=== PATIENT | male | born 1970 | race African-American/Black ===

== ENCOUNTER 2018-03-31 14:56 | Inpatient (IN) | payer OTHER ==
[2018-03-31 16:58] VITALS: BMI 25.7
--- NOTE | 2018-03-31 19:12 | HP ---
CIWA Score - CIWA Score Nausea/Vomitin Muscle Tremors: 3 Anxiety: 4-Mod. Anxious/Guarded Agitation: 2 Paroxysmal Sweats: No Perspiration Orientation: 0-Oriented Tacttile Disturbances: 2-Mild Itch/Numbness/Burn Auditory Disturbances: 0-None Visual Disturbances: 2-Mild Sensitivity Headache: 0-None Present CIWA-Ar Total Score: 16 Admission ROS BHS - HPI Chief Complaint: "I'm here because I want to go back to work and go on with my life. My drinking is hindering me." Patient is here to Detox from Alcohol. Allergies/Adverse Reactions: Allergies Allergy/AdvReac Type Severity Reaction Status Date / Time beet Allergy Severe Swelling Verified 03/31/18 18:41 liver extract Allergy Severe Swelling Verified 03/31/18 18:57 History of Present Illness: Patient is a 47 YO male here to Detox from Alcohol. This is patient's first detox admission at [facility]. Patient has had several Detox admissions at other locations in the past; Most Recent: [facility] ([place] in 01/2018. Most recent period of sobriety: approx. 1.5 years ([id number]). Exam Limitations: No Limitations - Ebola screening Have you traveled outside of the country in the last 21 days: No Have you had contact with anyone from an Ebola affected area: No Have you been sick,other than usual withdrawal symptoms: No Do you have a fever: No - Review of Systems Constitutional: Chills, Diaphoresis, Fever, Malaise, Night Sweats, Changes in sleep, Unintentional Wgt. Loss (Lost approx. 10 lbs. over last 3 months.) EENT: reports: No Symptoms Reported Respiratory: reports: No Symptoms reported Cardiac: reports: Other (Patient reports episodes of "Blackouts" when is drinking, in which he temporarily loses awareness of what he is doing. Last episode: approx. 2 days ago.) GI: reports: Nausea, Indigestion : reports: No Symptoms Reported Musculoskeletal: reports: Back Pain, Joint Pain (Primarily Left Hip (Chronic Condition).), Joint Stiffness (Primarily Left Hip (Chronic Condition).) Integumentary: reports: Other (Small healing cut near tip of Index Finger of Right Hand. Patient accidentlally cut himself with a piece of glass approx. 3 days ago.) Neuro: reports: Tremors Endocrine: reports: No Symptoms Reported Hematology: reports: No Symptoms Reported Psychiatric: reports: Judgement Intact, Mood/Affect Appropiate, Orientated x3, Anxious Other Systems: Reviewed and Negative Patient History - Patient Medical History Hx Anemia: No Hx Asthma: No Hx Chronic Obstructive Pulmonary Disease (COPD): No Hx Cancer: No Hx Cardiac Disorders: Yes (Heart Murmur.) Hx Congestive Heart Failure: No Hx Hypertension: No Hx Hypercholesterolemia: No Hx Pacemaker: No HX Cerebrovascular Accident: No Hx Seizures: No Hx Dementia: No Hx Diabetes: No Hx Gastrointestinal Disorders: No Hx Liver Disease: No Hx Genitourinary Disorders: No Hx Sexually Transmitted Disorders: No Hx Renal Disease (ESRD): No Hx Thyroid Disease: No Hx Human Immunodeficiency Virus (HIV): No (Last Tested: 01/2018: NEGATIVE.) Hx Hepatitis C: No (Last Tested: 01/2018: NEGATIVE.) Hx Depression: No Hx Suicide Attempt: No (PATIENT DENIES CURRENT SI / HI.) Hx Bipolar Disorder: No Hx Schizophrenia: No Other Medical History: DENIES. - Patient Surgical History Past Surgical History: No Hx Neurologic Surgery: No Hx Cataract Extraction: No Hx Cardiac Surgery: No Hx Lung Surgery: No Hx Breast Surgery: No Hx Breast Biopsy: No Hx Abdominal Surgery: No Hx Appendectomy: No Hx Cholecystectomy: No Hx Genitourinary Surgery: No Hx Section: No Hx Orthopedic Surgery: No Other Surgical History: DENIES. Anesthesia Reaction: No - PPD History Previous Implant?: Yes Documented Results: Positive w/o proof (Completed Full course of Antibiotic treatment in 1991 and again 2000.) Implanted On Prior [facility] Admission?: No PPD to be Administered?: No - Reproductive History Patient is a Female of Child Bearing Age (11 -55 yrs old): No (PATIENT IS MALE.) - Smoking Cessation Smoking history: Current every day smoker Aproximately how many cigarettes per day: 7 Cigars Per Day: 0 Hx Chewing Tobacco Use: No Initiated information on smoking cessation: Yes 'Breaking Loose' booklet given: 03/31/18 (GIVEN TO PATIENT.) - Substance & Tx. History Hx Alcohol Use: Yes Hx Substance Use: Yes Substance Use Type: Alcohol, Heroin, Marijuana Hx Substance Use Treatment: Yes (Previous admissions at other locations (Most Recent: [facility], 01/2018).) - Substances Abused Alcohol Route: Oral Frequency: Daily Amount used: LIQUOR- 5 PINTS, BEER- 1 SIX PACK Age of first use: 25 Date of Last Use: 03/31/18 Crack Route: Smoking Frequency: Daily Amount used: $100 WORTH Age of first use: 15 Date of Last Use: 03/31/18 Marijuana/Hashish Route: Smoking Frequency: Daily Amount used: $5 - $20 Age of first use: 11 Date of Last Use: 03/31/18 Family Disease History - Family Disease History Family Disease History: Heart Disease: Mother (.), Other: Grandparent ( Alcohol.), Father (Alcohol.) Admission Physical Exam S - Vital Signs Vital Signs: Vital Signs - 24 hr 03/31/18 16:56 Temperature 98.0 F Pulse Rate 66 Respiratory 18 Rate Blood Pressure 140/78 - Physical General Appearance: Yes: No Apparent Distress, Nourished, Appropriately Dressed , Tremorous, Anxious HEENTM: Yes: Hearing grossly Normal, Normocephalic, Normal Voice, MAURO, Pharynx Normal Respiratory: Yes: Chest Non-Tender, Lungs Clear, No Respiratory Distress, No Accessory Muscle Use Neck: Yes: No masses,lesions,Nodules, Supple, Trachea in good position Breast: Yes: Breast Exam Deferred Cardiology: Yes: Regular Rhythm, Regular Rate, S1, S2 Abdominal: Yes: Normal Bowel Sounds, Non Tender, Flat, Soft Genitourinary: Yes: Within Normal Limits Back: Yes: Decreased Range of Motion Musculoskeletal: Yes: Gait Steady, Back pain, Joint Stiffness Extremities: Yes: Normal Capillary Refill, Tremors Neurological: Yes: Fully Oriented, Alert, Normal Mood/Affect, Normal Response Integumentary: Yes: Normal Color, Dry, Warm, Other (Small Cut Near tip of Index Finger of Right Hand (patient reports that he accidentally cut himself with glass three days ago). Wounds appears to be healing well. No discharge, erythema , swelling, or signs of infection noted.) Lymphatic: Yes: Within Normal Limits - Diagnostic (1) Alcohol dependence with uncomplicated withdrawal Current Visit: Yes Status: Acute (2) Cocaine dependence, uncomplicated Current Visit: Yes Status: Chronic (3) Cannabis dependence, uncomplicated Current Visit: Yes Status: Chronic (4) Nicotine dependence Current Visit: Yes Status: Chronic Qualifiers: Nicotine product type: cigarettes Substance use status: uncomplicated Qualified Code(s): F17.210 - Nicotine dependence, cigarettes, uncomplicated Cleared for Admission [facility] - Detox or Rehab [facility] Level of Care: Medically Managed Detox Regimen/Protocol: Librium [facility] Breath Alcohol Content Breath Alcohol Content: 0 Urine Drug Screen - Results Drug Screen Negative: No Urine Drug Screen Results: THC-Marijuana, JEREMIAS-Cocaine
[2018-03-31] MEDS ORDERED: MENTHOL/PHENOL 1 EACH UD MM PRN (19:42)
[2018-03-31] MEDS ORDERED: LOPERAMIDE HCL 2 MG CAPSULE PO PRN (19:42)
[2018-03-31] MEDS ORDERED: guaiFENesin/D-METHORPHAN HB 10 ML UNIT-DOSE CUPS PO PRN (19:42)
[2018-03-31] MEDS ORDERED: chlordiazePOXIDE HCL 25 MG CAPSULE PO PRN (19:42)
[2018-03-31] MEDS ORDERED: MAGNESIUM HYDROX 2400MG/30ML ORAL SUSPENSION 30 ML CUP PO PRN (19:42)
[2018-03-31] MEDS ORDERED: MAG HYDROX/AL HYDROX/SIMETH 30 ML UNIT-DOSE CUP PO PRN (19:42)
[2018-03-31] MEDS ORDERED: IBUPROFEN 400 MG TABLET (FP) PO PRN (19:42)
[2018-03-31] MEDS ORDERED: ACETAMINOPHEN 325 MG TABLET (FP) PO PRN (19:42)
[2018-03-31] MEDS ORDERED: P-EPHED 60MG/TRIPROLIDI 2.5MG TABLET PO PRN (19:42)
[2018-03-31] MEDS ORDERED: MAGNESIUM CITRATE 300 ML BOTTLE PO PRN (19:42)
[2018-03-31] MEDS ORDERED: chlordiazePOXIDE HCL 25 MG CAPSULE PO ONE (20:15)
[2018-03-31] MEDS: BACITRACIN 0.9 GM PACKET TP SCH (22:15)
[2018-03-31] MEDS: THIAMINE HCL 100 MG TABLET (FP) PO SCH (22:16)
[2018-03-31] MEDS: chlordiazePOXIDE HCL 25 MG CAPSULE PO SCH (22:28)
[2018-04-01 01:32] LABS: URINE APPEARANCE CLEAR; URINE BILIRUBIN NEGATIVE (<2.0 mg/dL); URINE COLOR YELLOW; URINE GLUCOSE (UA) NEGATIVE (NEGATIVE); URINE KETONE NEGATIVE (NEGATIVE); URINE LEUK ESTERASE NEGATIVE (NEGATIVE); URINE NITRITE NEGATIVE (NEGATIVE); URINE PROTEIN NEGATIVE (NEGATIVE); URINE UROBILINOGEN NEGATIVE mg/dL (0.2-1.0)
[2018-04-01] MEDS: chlordiazePOXIDE HCL 25 MG CAPSULE PO SCH ×4 (05:50→22:27)
[2018-04-01] MEDS ORDERED: BACITRACIN 0.9 GM PACKET ONE (09:47)
[2018-04-01 10:31] LABS: HEMATOCRIT 43.5 % (35.4-49); HEMOGLOBIN 14.6 GM/dL (11.7-16.9); MCH 31.4 pg (25.7-33.7); MCHC 33.7 g/dl (32.0-35.9); MEAN CELL VOLUME 93.3 fl (80-96); MEAN PLT VOLUME 10.5 fl (7.5-11.1); PLATELET COUNT 148 K/MM3 (134-434); RBC 4.66 M/mm3 (4.00-5.60); RDW 13.8 % (11.9-15.9); WHITE BLOOD COUNT 3.9 K/mm3 (4.0-10.0)
[2018-04-01 10:33] LABS: CHLORIDE 111 mmol/L (98-107); POTASSIUM 4.4 mmol/L (3.5-5.1); SODIUM 144 mmol/L (136-145)
--- NOTE | 2018-04-01 10:54 | PN ---
S CIWA - CIWA Score Nausea/Vomitin Muscle Tremors: 2 Anxiety: 2 Agitation: 2 Paroxysmal Sweats: 2 Orientation: 0-Oriented Tacttile Disturbances: 2-Mild Itch/Numbness/Burn Auditory Disturbances: 1-Very Mild Visual Disturbances: 0-None Headache: 2-Mild CIWA-Ar Total Score: 15 S Progress Note (SOAP) Subjective: Shakes and diarrhea Objective: 04/01/18 10:53 Vital Signs - 8 hr 04/01/18 04/01/18 04/01/18 03:30 06:00 06:30 Temperature 98.2 F Pulse Rate 59 L Respiratory 18 18 18 Rate Blood Pressure 149/78 04/01/18 09:15 Temperature 98.1 F Pulse Rate 55 L Respiratory 18 Rate Blood Pressure 139/76 Laboratory Last Values WBC 3.9 K/mm3 (4.0-10.0) L 04/01/18 08:00 RBC 4.66 M/mm3 (4.00-5.60) 04/01/18 08:00 Hgb 14.6 GM/dL (11.7-16.9) 04/01/18 08:00 Hct 43.5 % (35.4-49) 04/01/18 08:00 MCV 93.3 fl (80-96) 04/01/18 08:00 MCH 31.4 pg (25.7-33.7) 04/01/18 08:00 MCHC 33.7 g/dl (32.0-35.9) 04/01/18 08:00 RDW 13.8 % (11.9-15.9) 04/01/18 08:00 Plt Count 148 K/MM3 (134-434) 04/01/18 08:00 MPV 10.5 fl (7.5-11.1) 04/01/18 08:00 Sodium 144 mmol/L (136-145) 04/01/18 08:00 Potassium 4.4 mmol/L (3.5-5.1) 04/01/18 08:00 Chloride 111 mmol/L (98-107) H 04/01/18 08:00 Urine Color Yellow 04/01/18 00:07 Urine Appearance Clear 04/01/18 00:07 Urine pH 5.0 (5.0-8.0) 04/01/18 00:07 Ur Specific [place] 1.014 (1.001-1.035) 04/01/18 00:07 Urine Protein Negative (NEGATIVE) 04/01/18 00:07 Urine Glucose (UA) Negative (NEGATIVE) 04/01/18 00:07 Urine Ketones Negative (NEGATIVE) 04/01/18 00:07 Urine Blood Negative (NEGATIVE) 04/01/18 00:07 Urine Nitrite Negative (NEGATIVE) 04/01/18 00:07 Urine Bilirubin Negative (<2.0 mg/dL) 04/01/18 00:07 Urine Urobilinogen Negative mg/dL (0.2-1.0) 04/01/18 00:07 Ur Leukocyte Esterase Negative (NEGATIVE) 04/01/18 00:07 Labs noted Assessment: 04/01/18 10:54 Withdrawal sx Plan: Continue detox
[2018-04-01] MEDS: PRENATAL VITAMINS W/ FOLIC ACID TABLET (FP) PO SCH (10:59)
[2018-04-01] MEDS: BACITRACIN 0.9 GM PACKET TP SCH ×2 (10:59→22:27)
[2018-04-01 11:11] LABS: ALBUMIN 3.1 g/dl (3.4-5.0); ALK PHOS 66 U/L (45-117); ANION GAP 9 MMOL/L (8-16); BILIRUBIN,TOTAL 0.5 mg/dL (0.2-1.0); BLOOD UREA NITROGEN 16 mg/dL (7-18); CALCIUM 8.9 mg/dL (8.5-10.1); CO2 24 mmol/L (21-32); GLUCOSE,RANDOM 86 mg/dL (74-106); SGOT/AST 36 U/L (15-37); SGPT/ALT 39 U/L (12-78); TOT PROT 6.6 g/dl (6.4-8.2)
--- NOTE | 2018-04-01 16:39 | CONSULT ---
[facility] Psychiatric Consult - Data Date of interview: 04/01/18 Admission source: [facility] Identifying data: First admission to [facility] for this 47 y/o AA male seeking detox treatment on for alcohol,cocaine,cannabis and nicotine dependence.Patient is single,a father of two,domiciled,unemployed and guarded on the issue of source of income. Substance Abuse History: Confirmed by patient in this interview . Details in current [facility] repoort : Smoking history: Current every day smoker. Aproximately how many cigarettes per day: 7. Cigars Per Day: 0. Hx Chewing Tobacco Use: No. Initiated information on smoking cessation: Yes. 'Breaking Loose' booklet given: 03/31/18 (GIVEN TO PATIENT.). - Substance & Tx. History. Hx Alcohol Use : Yes. Hx Substance Use: Yes. Substance Use Type: Alcohol, Heroin, Marijuana. Hx Substance Use Treatment: Yes (Previous admissions at other locations (Most Recent: [facility], 01/2018).). - Substances Abused. Alcohol. Route: Oral. Frequency: Daily. Amount used: LIQUOR- 5 PINTS, BEER- 1 SIX PACK. Age of first use: 25. Date of Last Use: 03/31/18. Crack. Route: Smoking. Frequency: Daily. Amount used: $100 WORTH. Age of first use: 15. Date of Last Use: 03/31/18. Marijuana/Hashish. Route: Smoking. Frequency: Daily. Amount used: $5 - $20. Age of first use: 11. Date of Last Use: 03/31/18 Medical History: Patient endorses good general health.Noted history of heart murmur. Psychiatric History: Patient denies history of psychiatric hospitalizations or suicide attempts.Mr Alex indicates that, years ago, he was seeing a psychologist for anger management.Not on psychotropic medications. Physical/Sexual Abuse/Trauma History: Patient denies. Additional Comment: Urine Drug Screen Results: THC-Marijuana, JEREMIAS-Cocaine.Noted. Mental Status Exam - Mental Status Exam Alert and Oriented to: Time, Place, Person Cognitive Function: Good Patient Appearance: Unkempt, Disheveled Mood: Withdrawn, Irritable Affect: Mood Congruent Patient Behavior: Fatigued, Cooperative Speech Pattern: Clear, Appropriate Voice Loudness: Normal Thought Process: Intact, Goal Oriented Thought Disorder: Not Present Hallucinations: Denies Suicidal Ideation: Denies Homicidal Ideation: Denies Insight/Judgement: Poor Sleep: Fair Appetite: Good Muscle strength/Tone: Normal Gait/Station: Normal Psychiatric Findings - Problem List ([place] 1, 2,3) (1) Alcohol dependence with uncomplicated withdrawal Current Visit: Yes Status: Acute (2) Cocaine dependence, uncomplicated Current Visit: Yes Status: Chronic (3) Cannabis dependence, uncomplicated Current Visit: Yes Status: Acute (4) Nicotine dependence Current Visit: Yes Status: Chronic Qualifiers: Nicotine product type: cigarettes Substance use status: uncomplicated Qualified Code(s): F17.210 - Nicotine dependence, cigarettes, uncomplicated - Initial Treatment Plan Initial Treatment Plan: Psychoeducation.Sleep hygiene.Detoxification.Observation.
--- NOTE | 2018-04-01 19:07 | EKG ---
Test Reason : Blood Pressure : / mmHG Vent. Rate : 067 BPM Atrial Rate : 067 BPM P-R Int : 134 ms QRS Dur : 088 ms QT Int : 388 ms P-R-T Axes : 076 070 065 degrees QTc Int : 409 ms NORMAL SINUS RHYTHM NORMAL ECG NO PREVIOUS ECGS AVAILABLE Confirmed by JAS MARROQUIN MD ([id number]) on 04/01/2018 7:06:45 PM Referred By: Confirmed By:JAS MARROQUIN MD
[2018-04-01] MEDS: THIAMINE HCL 100 MG TABLET (FP) PO SCH (22:27)
[2018-04-02] MEDS: chlordiazePOXIDE HCL 25 MG CAPSULE PO SCH ×3 (05:39→17:19)
[2018-04-02] MEDS: BACITRACIN 0.9 GM PACKET TP SCH ×2 (09:57→22:23)
[2018-04-02] MEDS: PRENATAL VITAMINS W/ FOLIC ACID TABLET (FP) PO SCH (09:57)
[2018-04-02] MEDS: LIDOCAINE 5% TOPICAL PATCH TP SCH (11:17)
--- NOTE | 2018-04-02 12:02 | PN ---
[facility] CIWA - CIWA Score Nausea/Vomitin-Mild Nausea/No Vomiting Muscle Tremors: 4-Moderate,w/Arms Extend Anxiety: 4-Mod. Anxious/Guarded Agitation: 4-Moderately Restless Paroxysmal Sweats: No Perspiration Orientation: 0-Oriented Tacttile Disturbances: 0-None Auditory Disturbances: 0-None Visual Disturbances: 0-None Headache: 0-None Present CIWA-Ar Total Score: 13 S Progress Note (SOAP) Subjective: c/o back pain, mild nausea, tremors of hands Objective: Alert and oriented x 3. Respirations quiet and unlabored. Lab Results WBC 3.9 K/mm3 (4.0-10.0) L 04/01/18 08:00 RBC 4.66 M/mm3 (4.00-5.60) 04/01/18 08:00 Hgb 14.6 GM/dL (11.7-16.9) 04/01/18 08:00 Hct 43.5 % (35.4-49) 04/01/18 08:00 MCV 93.3 fl (80-96) 04/01/18 08:00 MCHC 33.7 g/dl (32.0-35.9) 04/01/18 08:00 RDW 13.8 % (11.9-15.9) 04/01/18 08:00 Plt Count 148 K/MM3 (134-434) 04/01/18 08:00 Sodium 144 mmol/L (136-145) 04/01/18 08:00 Potassium 4.4 mmol/L (3.5-5.1) 04/01/18 08:00 Chloride 111 mmol/L (98-107) H 04/01/18 08:00 Carbon Dioxide 24 mmol/L (21-32) 04/01/18 08:00 Anion Gap 9 MMOL/L (8-16) 04/01/18 08:00 BUN 16 mg/dL (7-18) 04/01/18 08:00 Creatinine 1.0 mg/dL (0.7-1.3) 04/01/18 08:00 Random Glucose 86 mg/dL (74-106) 04/01/18 08:00 Calcium 8.9 mg/dL (8.5-10.1) 04/01/18 08:00 Vital Signs - 24 hr 04/01/18 04/01/18 04/02/18 14:40 22:13 00:30 Temperature 97.7 F 97.8 F Pulse Rate 68 62 Respiratory 16 17 18 Rate Blood Pressure 129/63 149/90 04/02/18 04/02/18 04/02/18 03:30 06:00 10:00 Temperature 97.3 F L 98.2 F Pulse Rate 58 L 64 Respiratory 16 18 18 Rate Blood Pressure 140/76 134/74 04/02/18 11:58 Assessment: Alcohol withdrawal. 04/02/18 11:59 Plan: Continue detox regimen. Lidocaine patch daily.
[2018-04-02] MEDS: THIAMINE HCL 100 MG TABLET (FP) PO SCH (22:23)
[2018-04-02] MEDS: chlordiazePOXIDE 5 MG CAPSULE PO SCH (22:23)
[2018-04-02] MEDS: TETRAHYDROZOLINE HCL EYE DROPS OU PRN (22:25)
[2018-04-02] MEDS: MELATONIN 5 MG TABLETS PO PRN (22:29)
[2018-04-02] MEDS: LIDOCAINE PATCH REMOVAL MC SCH (22:29)
[2018-04-03] MEDS: chlordiazePOXIDE 5 MG CAPSULE PO SCH ×3 (06:30→17:51)
[2018-04-03] MEDS: LIDOCAINE 5% TOPICAL PATCH TP SCH (10:51)
[2018-04-03] MEDS: BACITRACIN 0.9 GM PACKET TP SCH ×2 (10:51→22:03)
[2018-04-03] MEDS: PRENATAL VITAMINS W/ FOLIC ACID TABLET (FP) PO SCH (10:54)
[2018-04-03] MEDS: TETRAHYDROZOLINE HCL EYE DROPS OU PRN (22:03)
[2018-04-03] MEDS: chlordiazePOXIDE HCL 10 MG CAPSULE PO SCH (22:03)
[2018-04-03] MEDS: LIDOCAINE PATCH REMOVAL MC SCH (22:18)
[2018-04-03] MEDS: THIAMINE HCL 100 MG TABLET (FP) PO SCH (22:18)
[2018-04-03] MEDS: MELATONIN 5 MG TABLETS PO PRN (23:36)
[2018-04-04] MEDS: chlordiazePOXIDE HCL 10 MG CAPSULE PO SCH (05:27)
[2018-04-04 09:15] VITALS: BP 139/82; PULSE 64; TEMP 97
--- NOTE | 2018-04-04 10:41 | DS ---
[facility] Detox Discharge Summary Admission Date: 03/31/18 Discharge Date: 04/04/18 - History Present History: Alcohol Dependence, Cannabis Dependence, Cocaine Dependence Additional Comments: Patient medically stable. Follow up with out patient program and primary care provider. - Physical Exam Results Vital Signs: Vital Signs Temperature 97.0 F L 04/04/18 09:15 Pulse Rate 64 04/04/18 09:15 Respiratory Rate 18 04/04/18 09:15 Blood Pressure 139/82 04/04/18 09:15 O2 Sat by Pulse Oximetry (%) Pertinent Admission Physical Exam Findings: Vital Signs Temperature 97.0 F L 04/04/18 09:15 Pulse Rate 64 04/04/18 09:15 Respiratory Rate 18 04/04/18 09:15 Blood Pressure 139/82 04/04/18 09:15 O2 Sat by Pulse Oximetry (%) Laboratory Last Values WBC 3.9 K/mm3 (4.0-10.0) L 04/01/18 08:00 RBC 4.66 M/mm3 (4.00-5.60) 04/01/18 08:00 Hgb 14.6 GM/dL (11.7-16.9) 04/01/18 08:00 Hct 43.5 % (35.4-49) 04/01/18 08:00 MCV 93.3 fl (80-96) 04/01/18 08:00 MCH 31.4 pg (25.7-33.7) 04/01/18 08:00 MCHC 33.7 g/dl (32.0-35.9) 04/01/18 08:00 RDW 13.8 % (11.9-15.9) 04/01/18 08:00 Plt Count 148 K/MM3 (134-434) 04/01/18 08:00 MPV 10.5 fl (7.5-11.1) 04/01/18 08:00 Sodium 144 mmol/L (136-145) 04/01/18 08:00 Potassium 4.4 mmol/L (3.5-5.1) 04/01/18 08:00 Chloride 111 mmol/L (98-107) H 04/01/18 08:00 Carbon Dioxide 24 mmol/L (21-32) 04/01/18 08:00 Anion Gap 9 MMOL/L (8-16) 04/01/18 08:00 BUN 16 mg/dL (7-18) 04/01/18 08:00 Creatinine 1.0 mg/dL (0.7-1.3) 04/01/18 08:00 Creat Clearance w eGFR > 60 (>60) 04/01/18 08:00 Random Glucose 86 mg/dL (74-106) 04/01/18 08:00 Calcium 8.9 mg/dL (8.5-10.1) 04/01/18 08:00 Total Bilirubin 0.5 mg/dL (0.2-1.0) 04/01/18 08:00 AST 36 U/L (15-37) 04/01/18 08:00 ALT 39 U/L (12-78) 04/01/18 08:00 Alkaline Phosphatase 66 U/L (45-117) 04/01/18 08:00 Total Protein 6.6 g/dl (6.4-8.2) 04/01/18 08:00 Albumin 3.1 g/dl (3.4-5.0) L 04/01/18 08:00 Urine Color Yellow 04/01/18 00:07 Urine Appearance Clear 04/01/18 00:07 Urine pH 5.0 (5.0-8.0) 04/01/18 00:07 Ur Specific [place] 1.014 (1.001-1.035) 04/01/18 00:07 Urine Protein Negative (NEGATIVE) 04/01/18 00:07 Urine Glucose (UA) Negative (NEGATIVE) 04/01/18 00:07 Urine Ketones Negative (NEGATIVE) 04/01/18 00:07 Urine Blood Negative (NEGATIVE) 04/01/18 00:07 Urine Nitrite Negative (NEGATIVE) 04/01/18 00:07 Urine Bilirubin Negative (<2.0 mg/dL) 04/01/18 00:07 Urine Urobilinogen Negative mg/dL (0.2-1.0) 04/01/18 00:07 Ur Leukocyte Esterase Negative (NEGATIVE) 04/01/18 00:07 RPR Titer Nonreactive (NONREACTIVE) 04/01/18 08:00 Hep C Ab Diagnostic <0.1 s/co ratio (0.0-0.9) 04/01/18 08:00 Liver Fibrosis Interp (.) 04/01/18 08:00 HIV 1&2 Antibody Screen Negative 04/01/18 08:00 HIV P24 Antigen Negative 04/01/18 08:00 - Treatment Hospital Course: Detox Protocol Followed, Detoxed Safely, Responded well, Discharged Condition Good Patient has Accepted a Rehab Referral to: Follow up with out patient referrals - Medication Discharge Medications: Ambulatory Orders NK [No Known Home Medication] 03/31/18 - Diagnosis (1) Alcohol dependence with uncomplicated withdrawal Current Visit: Yes Status: Acute (2) Cannabis dependence, uncomplicated Current Visit: Yes Status: Acute (3) Cocaine dependence, uncomplicated Current Visit: Yes Status: Chronic (4) Nicotine dependence Current Visit: Yes Status: Chronic Qualifiers: Nicotine product type: cigarettes Substance use status: uncomplicated Qualified Code(s): F17.210 - Nicotine dependence, cigarettes, uncomplicated - AMA Did Patient Leave Against Medical Advice: No
== END 2018-04-04 10:07 | disposition home or self-care (01) | DRG 774 ==
LOC: YASAS 14:56 → Y6N 18:47
PROVIDERS: ADMIT Surgery; ATTEND Surgery
PROC: HZ2ZZZZ Detoxification Services for Substance Abuse Treatment (ICD-10-PCS; principal; 2018-03-31)
DX: F10.230 Alcohol dependence with withdrawal, uncomplicated (principal); F14.20 Cocaine dependence, uncomplicated; F12.20 Cannabis dependence, uncomplicated; F17.210 Nicotine dependence, cigarettes, uncomplicated; R01.1 Cardiac murmur, unspecified; Z59.0 Homelessness
CPT/HCPCS: 36415; 71046-TC-FY; 80053; 81003; 85027; 86593; 86803; 87389; 93005; 93010